=== PATIENT | female | born 1950 | race Caucasian/White ===

== ENCOUNTER 2018-05-17 07:09 | Day surgery (SDC) | payer MEDICARE, BC ==
[~2018-05-17 07:09] MED LIST: Buffered Lidocaine 0.9% SYRIN* 5 ML/SYR SYRINGE INTRADERM ONE
[2018-05-17] MEDS ORDERED: Lidocaine 2.5%/Prilocain 2.5%* 5 GM TUBE ONE (07:36)
[2018-05-17] MEDS ORDERED: ceFAZolin 2 GM PREMIX in ORs 2 GM/50 ML BAG IVPB ONE (07:36)
--- NOTE | 2018-05-17 09:29 | RAD ---
Indication: Right breast mass Eckert node localization was performed after periareolar injection of 0.3 mCi of technetium 99m sulfur colloid. The sentinel node in the right axilla was localized and marked with a marker. IMPRESSION: Localization of the right axilla sentinel node.
[2018-05-17] MEDS ORDERED: Midazolam* 1 MG/ML 2 ML VIAL (2 MG) ONE (12:54)
[2018-05-17] MEDS ORDERED: fentaNYL* 50 MCG/ML 2 ML VIAL (100 MCG VIAL) ONE ×2 (12:54→14:47)
[2018-05-17] MEDS ORDERED: Bupivacaine 0.5% W/EPI SDV* 30 ML VIAL ONE (13:22)
[2018-05-17] MEDS ORDERED: Famotidine IV* 10 MG/ML 2 ML (20 mg) ONE (13:27)
[2018-05-17] MEDS ORDERED: Ondansetron INJ* 2 MG/ML VIAL ONE (14:12)
[2018-05-17] MEDS ORDERED: Propofol* 10 MG/ML 20 ML BTL IV PUSH ONE (14:12)
[2018-05-17] MEDS ORDERED: Lidocaine 2% PF * 5 ML VIAL ONE (14:12)
[2018-05-17] MEDS ORDERED: EPHEDrine (Pressors)* 50 MG/ML VIAL ONE (14:14)
[2018-05-17] MEDS ORDERED: Ondansetron INJ* 2 MG/ML VIAL IV PRN (14:27)
[2018-05-17] MEDS ORDERED: HYDROcodone/ACETAMIN 5-325 MG* 1 TAB PO PRN ×2 (14:27)
[2018-05-17] MEDS ORDERED: Naloxone* 0.4 MG/ML 1 ML VIAL IV PRN (14:27)
[2018-05-17] MEDS ORDERED: fentaNYL* 50 MCG/ML 2 ML VIAL (100 MCG VIAL) IV PRN (14:27)
[2018-05-17] MEDS ORDERED: Acetaminophen TAB* 325 MG PO PRN (14:27)
[2018-05-17] MEDS ORDERED: DiMENhydriNATE IV* 50 MG/ML VIAL IV PUSH PRN (14:27)
[2018-05-17] MEDS ORDERED: Ketorolac INJ* 30 MG/ML 1 ML VIAL ONE (15:03)
[2018-05-17 16:26] VITALS: BP 140/98
--- NOTE | 2018-05-18 03:09 | OP ---
CC: Dr. Savage; Dr. Dacosta * DATE OF OPERATION: 05/17/18 - [facility] DATE OF : 48 SURGEON: Dr. Bray. MARKET INVESTIGATOR: Lisa Singh NP. ANESTHESIOLOGIST: Dr. Vitale. ANESTHESIA: General anesthetic, local infiltration. PRE-OP DIAGNOSIS: Right breast cancer. POST-OP DIAGNOSIS: Right breast cancer. OPERATIVE PROCEDURE: Wide excision, sentinel node biopsy of right breast cancer. DESCRIPTION OF PROCEDURE: The patient was supine on the operative table. After adequate general anesthetic, compression stockings, Lilly Hugger Warmer, and intravenous antibiotics, the right breast and axillary regions were prepped with antiseptic and draped in a sterile fashion. Local infiltrative anesthesia was administered and approximately 8 cm elliptical incision was created approximately 4 cm in width. Skin was sent separately. Wide excision, which encompassed maybe a third of the breast of the upper outer quadrant of the breast, was carried out. The mass itself was approximately 3 x 5 cm in size by palpation. The wide excision was approximately 8 x 10 cm in size and down to the pectoralis fascia. It was marked with usual marking sutures and sent fresh to pathology and hemostasis obtained using electrocautery. The sentinel node was accessed through the same site. There are 2 sentinel nodes, one with a count of 1745, another one with a count of 336. There was an additional jorge area that seemed kind of firm, so I did take that out as well. This was labeled as additional right axillary node. Hemostasis was good. Closure was accomplished using 3-0 and 5-0 Vicryl, followed by Steri-Strips and a gauze dressing. She tolerated the procedure well, was awakened and brought to recovery in good condition. There were no complications. No drains. Pathologic specimens as above above. Sponge and instrument counts correct. Estimated blood loss 30 mL. [id number]/[facility] #: [id number] [facility]
== END 2018-05-17 16:44 | disposition home or self-care (01) ==
LOC: OR 07:09
PROVIDERS: ATTEND Surgery
DX: C50.411 Malignant neoplasm of upper-outer quadrant of right female breast (principal); Z87.891 Personal history of nicotine dependence; I10 Essential (primary) hypertension; E78.2 Mixed hyperlipidemia; E11.9 Type 2 diabetes mellitus without complications; Z79.84 Long term (current) use of oral hypoglycemic drugs; E66.9 Obesity, unspecified; Z68.32 Body mass index [BMI] 32.0-32.9, adult; G47.33 Obstructive sleep apnea (adult) (pediatric)
CPT/HCPCS: 78195; 88305; 88307; 88342; A9270-GY; A9541; J0690; J1885; J2250; J2405; J2704; J3010

== ENCOUNTER 2018-06-11 07:05 | Day surgery (SDC) | payer MEDICARE, BC ==
[~2018-06-11 07:05] MED LIST changes: +Acetaminophen TAB* 325 MG PO PRN
[2018-06-11] MEDS ORDERED: Midazolam* 1 MG/ML 2 ML VIAL (2 MG) ONE (07:53)
[2018-06-11 08:59] VITALS: BP 139/60
[2018-06-11] MEDS ORDERED: Lidocaine 1%* 5 ML VIAL ONE (14:00)
[2018-06-11] MEDS ORDERED: Neomycin/Polymy/Dex OPHTH.OIN* 3.5 GM ONE (14:00)
[2018-06-11] MEDS ORDERED: Phenylephrine 2.5% OPTH.SOL* 2 ML BTL ONE (14:00)
[2018-06-11] MEDS ORDERED: Ketorolac 0.5% OPHTH (NF) 0.5 % 5 ML BTL ONE (14:00)
[2018-06-11] MEDS ORDERED: Tetracaine 0.5% OPTH.SOL 4 ML* 1 DROP BTL ONE (14:00)
[2018-06-11] MEDS ORDERED: Tropicamide 1% OPTH.SOL* BTL ONE (14:00)
[2018-06-11] MEDS ORDERED: acetaZOLAMIDE TAB* 250 MG ONE (14:00)
[2018-06-11] MEDS ORDERED: Cyclopentolate 1% OPTH.SOL* 2 ML BTL ONE (14:00)
[2018-06-11] MEDS ORDERED: Povidone Iodine 5% OPTH* 30 ML BTL ONE (14:00)
--- NOTE | 2018-06-11 20:39 | OP ---
DATE OF OPERATION: 06/11/18 - [facility] DATE OF : 48 SURGEON: Rory Johnson MD ANESTHESIA: Monitored anesthesia care. PREOPERATIVE DIAGNOSIS: Cataract, right eye. POSTOPERATIVE DIAGNOSIS: Cataract, right eye. OPERATIVE PROCEDURE: Extracapsular cataract extraction of the right eye with intraocular lens implant. IMPLANT: SN60WF 20.0 diopter lens to the right eye. COMPLICATIONS: None. DESCRIPTION OF PROCEDURE: The patient was given phenylephrine 2.5 % and cyclopentolate 1% eye drops to the operative eye in the preoperative area. The patient was taken to the operating room where a time-out was taken to identify the correct patient, site, and side of surgery. The patient's right eye was prepped and draped in the usual sterile fashion with 5% Betadine. A second time- out was taken to verify the correct patient, side, and site of surgery, as well as the correct lens implant. A lid speculum was placed to the right eye. A 1mm paracentesis blade was used to make a clear corneal incision. Preservative-free 1% lidocaine was injected into the anterior chamber. DisCoVisc was then injected into the anterior chamber. A 2.75 mm keratome blade was used to make a triplanar incision. A cystotome initiated a capsulorrhexis, which was completed with Utrata forceps in a continuous and curvilinear manner. Hydrodissection of the lens was performed with BSS on a cannula. The lens could be spun in a capsular bag. The phacoemulsification handpiece was used with a divide-and- conquer technique to remove the nucleus. The I/A handpiece then removed the residual cortical lens material. DisCoVisc was injected to inflate the capsular bag. The planned SN60WF 20.0 diopter lens was injected into the capsular bag. The residual DisCoVisc was removed from the eye with the I/A handpiece. The corneal incisions were hydrated and no leaks occurred at physiologic pressure around 20 mmHg per palpation. The lid speculum was removed and drapes were removed. Maxitrol ointment was placed to the surface of the operative eye. An adhesive patch and shield was then placed on the operative eye. The patient was taken to the postoperative area in stable condition. [id number]/[facility] #: [id number] [facility]
== END 2018-06-11 09:06 | disposition home or self-care (01) ==
LOC: OREAST 07:05
PROVIDERS: ATTEND Student in an Organized Health Care Education/Training Program
DX: H25.811 Combined forms of age-related cataract, right eye (principal); E11.9 Type 2 diabetes mellitus without complications; Z79.84 Long term (current) use of oral hypoglycemic drugs; Z87.891 Personal history of nicotine dependence; G47.33 Obstructive sleep apnea (adult) (pediatric); Z85.3 Personal history of malignant neoplasm of breast
CPT/HCPCS: A9270-GY; J2250; V2632

== ENCOUNTER 2018-06-18 09:10 | Day surgery (SDC) | payer MEDICARE, BC ==
[2018-06-18] MEDS ORDERED: fentaNYL* 50 MCG/ML 2 ML VIAL (100 MCG VIAL) ONE (09:42)
[2018-06-18] MEDS ORDERED: Midazolam* 1 MG/ML 2 ML VIAL (2 MG) ONE (09:43)
[2018-06-18] MEDS ORDERED: Tetracaine 0.5% OPTH.SOL 4 ML* 1 DROP BTL ONE (11:01)
[2018-06-18] MEDS ORDERED: Ketorolac 0.5% OPHTH (NF) 0.5 % 5 ML BTL ONE (11:01)
[2018-06-18] MEDS ORDERED: Tropicamide 1% OPTH.SOL* BTL ONE (11:01)
[2018-06-18] MEDS ORDERED: Cyclopentolate 1% OPTH.SOL* 2 ML BTL ONE (11:01)
[2018-06-18] MEDS ORDERED: Povidone Iodine 5% OPTH* 30 ML BTL ONE (11:01)
[2018-06-18] MEDS ORDERED: Neomycin/Polymy/Dex OPHTH.OIN* 3.5 GM ONE (11:01)
[2018-06-18] MEDS ORDERED: acetaZOLAMIDE TAB* 250 MG ONE (11:01)
[2018-06-18] MEDS ORDERED: Lidocaine 1%* 5 ML VIAL ONE (11:01)
[2018-06-18] MEDS ORDERED: Phenylephrine 2.5% OPTH.SOL* 2 ML BTL ONE (11:01)
--- NOTE | 2018-06-18 11:16 | OP ---
DATE OF OPERATION: 06/18/2018 - [facility] DATE OF : 1950. SURGEON: Rory Johnson MD ANESTHESIA: Monitored anesthesia care. PREOPERATIVE DIAGNOSIS: Cataract, left eye. POSTOPERATIVE DIAGNOSIS: Cataract, left eye. OPERATIVE PROCEDURE: Extracapsular cataract extraction of the left eye with intraocular lens implant. IMPLANT: SN60WF 22.0 diopter lens to the left eye. COMPLICATIONS: None. DESCRIPTION OF PROCEDURE: The patient was given phenylephrine 2.5 % and cyclopentolate 1% eye drops to the operative eye in the preoperative area. The patient was taken to the operating room where a time-out was taken to identify the correct patient, site, and side of surgery. The patient's left eye was prepped and draped in the usual sterile fashion with 5% Betadine. A second time- out was taken to verify the correct patient, side, and site of surgery, as well as the correct lens implant. A lid speculum was placed to the left eye. A 1mm paracentesis blade was used to make a clear corneal incision. Preservative-free 1% lidocaine was injected into the anterior chamber. DisCoVisc was then injected into the anterior chamber. A 2.75 mm keratome blade was used to make a triplanar incision. A cystotome initiated a capsulorrhexis, which was completed with Utrata forceps in a continuous and curvilinear manner. Hydrodissection of the lens was performed with BSS on a cannula. The lens could be spun in a capsular bag. The phacoemulsification handpiece was used with a divide-and- conquer technique to remove the nucleus. The I/A handpiece then removed the residual cortical lens material. DisCoVisc was injected to inflate the capsular bag. The planned SN60WF 22.0 diopter lens was injected into the capsular bag. The residual DisCoVisc was removed from the eye with the I/A handpiece. The corneal incisions were hydrated and no leaks occurred at physiologic pressure around 20 mmHg per palpation. The lid speculum was removed and drapes were removed. Maxitrol ointment was placed to the surface of the operative eye. An adhesive patch and shield was then placed on the operative eye. The patient was taken to the postoperative area in stable condition. [id number]/[facility] #: [id number] [facility]
[2018-06-18 12:00] VITALS: BP 133/56
== END 2018-06-18 10:50 | disposition home or self-care (01) ==
LOC: OREAST 09:10
PROVIDERS: ATTEND Student in an Organized Health Care Education/Training Program
DX: H25.12 Age-related nuclear cataract, left eye (principal); E11.9 Type 2 diabetes mellitus without complications; Z79.84 Long term (current) use of oral hypoglycemic drugs; Z87.891 Personal history of nicotine dependence; I10 Essential (primary) hypertension; E78.2 Mixed hyperlipidemia; G47.33 Obstructive sleep apnea (adult) (pediatric)
CPT/HCPCS: A9270-GY; J2250; J3010; V2632